=== PATIENT | male | born 1965 | race American Indian/Alaskan Native ===

== ENCOUNTER 2017-07-18 23:11 | Emergency (ER) | payer SELFPAY ==
[2017-07-18] MEDS ORDERED: ASPIRIN PO ONE (23:48)
[2017-07-19] MEDS ORDERED: ATIVAN IV NR (01:15)
[2017-07-19] MEDS ORDERED: NACL 0.9% 1000 ML 1,000 ML IV ONE (01:15)
[2017-07-19 01:20] LABS: Basophils # (Auto) 0.1 K/mm3 (0.0-0.1); Basophils % (Auto) 0.5 % (0.0-1.8); Hematocrit 40.2 % (35.5-45.6); Hemoglobin 14.1 gm/dl (11.8-15.2); Lymphocytes # (Auto) 3.9 K/mm3 (1.2-5.4); Lymphocytes % (Auto) 19.7 % (13.4-35.0); Mean Corpuscular HGB Conc 35 % (32-34); Mean Corpuscular Hemoglobin 30 pg (28-32); Mean Corpuscular Volume 87 fl (84-94); Monocytes # (Auto) 1.1 K/mm3 (0.0-0.8); Monocytes % (Auto) 5.7 % (0.0-7.3); Platelet Count 151 K/mm3 (140-440); Red Blood Count 4.64 M/mm3 (3.65-5.03); Red Cell Distribution Width 13.3 % (13.2-15.2)
[2017-07-19 01:28] LABS: BUN/Creatinine Ratio 16; Blood Urea Nitrogen 13 mg/dL (9-20); Calcium 9.1 mg/dL (8.4-10.2); Hemolysis Index 7
--- NOTE | 2017-07-19 01:35 | XRay Report ---
FINAL REPORT EXAM: XR CHEST 1V AP HISTORY: Chest pain. TECHNIQUE: A single frontal portable radiograph of the chest was obtained. No prior studies are available for comparison. FINDINGS: The cardiac silhouette and mediastinum are within normal limits. The lungs are clear bilaterally, without focal infiltrate or effusion. There is no pneumothorax. No significant osseous abnormalities are identified. IMPRESSION: No active disease seen in the chest.
--- NOTE | 2017-07-19 01:41 | Emergency Department Report ---
ED General Adult HPI - General Chief complaint: Chest Pain Stated complaint: CHEST PAIN Time Seen by Provider: 07/19/17 01:12 Source: EMS Mode of arrival: Ambulatory Limitations: No Limitations - History of Present Illness Initial comments: Patient complains since he was smoking crack today some chest pain that he fell off a ladder evaluation of :chest pain w crack ,suicidal ideation ,fall off a ladder his low back with low back pain denied head or neck injury no hematuria no neck pain no head injury no shortness of breath pain or swelling no fever no cough -: Gradual Location: back Radiation: non-radiation Severity scale (0 -10): 7 Quality: sharp Consistency: intermittent Associated Symptoms: denies: confusion, chest pain, cough, diaphoresis, fever/ chills, headaches, loss of appetite, malaise, nausea/vomiting, rash, seizure, shortness of breath, syncope, weakness - Related Data Home Medications Medication Instructions Recorded Confirmed Last Taken Propylthiouracil 50 mg PO TID 07/02/14 07/02/14 Unknown Allergies Allergy/AdvReac Type Severity Reaction Status Date / Time No Known Allergies Allergy Verified 07/02/14 09:25 ED Review of Systems ROS: Stated complaint: CHEST PAIN Other details as noted in HPI Comment: All other systems reviewed and negative Constitutional: denies: diaphoresis, malaise, weakness Eyes: denies: eye discharge, vision change ENT: denies: ear pain, throat pain, dental pain, hearing loss, epistaxis, congestion Respiratory: denies: cough, orthopnea, shortness of breath, SOB with exertion, SOB at rest, stridor, wheezing, other Cardiovascular: denies: palpitations, dyspnea on exertion, orthopnea, edema, syncope, paroxysmal nocturnal dyspnea Gastrointestinal: denies: abdominal pain, nausea, vomiting, diarrhea, constipation, hematemesis, melena, hematochezia Genitourinary: denies: frequency, hematuria, discharge, testicular pain, testicular mass Musculoskeletal: arthralgia, myalgia Skin: denies: change in color Neurological: other (no bladder or bowel problems). denies: numbness, paresthesias, abnormal gait, vertigo ED Past Medical Hx - Past Medical History Previous Medical History?: No Additional medical history: THYROID - Surgical History Past Surgical History?: No Additional Surgical History: RIGHT FOOT - Social History Smoking Status: Current Every Day Smoker Substance Use Type: Alcohol - Medications Home Medications: Home Medications Medication Instructions Recorded Confirmed Last Taken Type Propylthiouracil 50 mg PO TID 07/02/14 07/02/14 Unknown History ED Physical Exam - General Limitations: No Limitations General appearance: alert, anxious - Head Head exam: Present: atraumatic, normocephalic - Eye Eye exam: Present: normal appearance, PERRL, EOMI Pupils: Present: normal accommodation - ENT ENT exam: Present: normal exam, normal orophraynx, mucous membranes moist - Neck Neck exam: Present: normal inspection. Absent: tenderness, meningismus - Respiratory Respiratory exam: Present: normal lung sounds bilaterally. Absent: respiratory distress, wheezes, rales, rhonchi, stridor, chest wall tenderness, accessory muscle use, decreased breath sounds, prolonged expiratory, other - Cardiovascular Cardiovascular Exam: Present: regular rate, normal rhythm, normal heart sounds - GI/Abdominal GI/Abdominal exam: Present: soft. Absent: distended, tenderness, guarding, rebound, rigid, mass, pulsatile mass - Extremities Exam Extremities exam: Present: normal inspection, normal capillary refill. Absent: pedal edema, joint swelling, calf tenderness - Back Exam Back exam: Present: normal inspection, muscle spasm, paraspinal tenderness - Neurological Exam Neurological exam: Present: alert, oriented X3, CN II-XII intact. Absent: motor sensory deficit - Psychiatric Psychiatric exam: Present: depressed, suicidal ideation. Absent: homicidal ideation - Skin Skin exam: Absent: cyanosis, diaphoretic, erythema, urticaria, vesicles, petechiae, pallor, abrasion, ecchymosis ED Course Vital Signs 07/18/17 07/18/17 07/18/17 23:16 23:30 23:43 Temperature 98.6 F Pulse Rate 120 H 118 H 120 H Respiratory 21 21 24 Rate Blood Pressure 126/64 126/83 Blood Pressure 126/83 [Left] O2 Sat by Pulse 98 98 Oximetry 07/18/17 07/19/17 07/19/17 23:45 00:00 01:04 Temperature Pulse Rate 122 H 111 H Respiratory 22 25 H Rate Blood Pressure 126/64 125/75 125/75 Blood Pressure [Left] O2 Sat by Pulse 99 97 Oximetry 07/19/17 07/19/17 07/19/17 01:15 01:21 03:32 Temperature Pulse Rate 138 H 115 H Respiratory 19 22 16 Rate Blood Pressure 125/75 Blood Pressure 103/66 [Left] O2 Sat by Pulse 99 98 95 Oximetry - Reevaluation(s) Reevaluation #1: 07/19/17 04:08 pt labs unremarkable, neg trop x 2. ekg nondiagnositic, back xray neg per rad for acute process 07/19/17 05:15 ED Medical Decision Making - Lab Data Result diagrams: 07/19/17 02:25 07/18/17 00:40 - EKG Data EKG shows normal: sinus rhythm - EKG Data When compared to previous EKG there are: previous EKG unavailable Interpretation: LVH, other (ischemic change on EKG) - Radiology Data Radiology results: report reviewed - Medical Decision Making Patient's urine tox is positive for cocaine his alcohol is negative back x-ray is negative EKG was no acute ischemic change negative trop 2 he is medically cleared for further evaluation of suicidal ideation and was placed on legal hold for c/o depression and wanting to hurt self. Critical care attestation.: If time is entered above; I have spent that time in minutes in the direct care of this critically ill patient, excluding procedure time. ED Disposition Clinical Impression: Cocaine abuse, Suicidal ideations, Back strain Disposition: [id number] PSY HOSP/PSY UNIT Is pt being admited?: No Condition: Stable Referrals: CHUY ABDULLAHI MD [Primary Care Provider] - 3-5 Days Time of Disposition: 04:11
[2017-07-19 01:52] LABS: Amphetamine Screen,Urine PRESUMPTIVE NEGATIVE; Benzodiazepines Screen,Urine PRESUMPTIVE NEGATIVE; Cannabinoid Screen,Urine PRESUMPTIVE NEGATIVE; Methadone Screen,Urine PRESUMPTIVE NEGATIVE; Opiate Screen,Urine PRESUMPTIVE NEGATIVE
[2017-07-19 02:08] LABS: Cocaine Screen,Urine PRESUMPTIVE POSITIVE
--- NOTE | 2017-07-19 02:30 | XRay Report ---
FINAL REPORT EXAM: XR SPINE LUMBOSACRAL 2-3V HISTORY: fall COMPARISON: None available. FINDINGS: Three views of the lumbar spine obtained. Lumbar vertebral body heights preserved. Mild loss of disc height and endplate osteophyte T12-L1 level. Remaining disc heights are preserved. No spondylolisthesis. IMPRESSION: Lumbar vertebral body heights preserved. Mild focal degenerative changes T12-L1 level.
--- NOTE | 2017-07-19 02:33 | XRay Report ---
FINAL REPORT EXAM: XR SPINE THORACIC 2V HISTORY: fall COMPARISON: None available. FINDINGS: Two views of the thoracic spine obtained. Thoracic vertebral body heights preserved. Mild loss of disc height endplate osteophyte mid to lower thoracic spine. Pedicles are intact. Normal kyphotic curvature. IMPRESSION: Mild degenerative changes. Thoracic vertebral body heights are preserved.
[2017-07-19 02:45] LABS: Hematocrit 40.8 % (35.5-45.6); Hemoglobin 14.1 gm/dl (11.8-15.2); Mean Corpuscular HGB Conc 35 % (32-34); Mean Corpuscular Hemoglobin 30 pg (28-32); Mean Corpuscular Volume 86 fl (84-94); Platelet Count 153 K/mm3 (140-440); Red Blood Count 4.72 M/mm3 (3.65-5.03); Red Cell Distribution Width 13.5 % (13.2-15.2)
[2017-07-19 04:21] LABS: Basophils % (Manual) 0 % (0.0-1.8); Eosinophils % (Manual) 0 % (0.0-4.3); Total Cells Counted 100
[2017-07-19 04:22] LABS: RBC Morphology Normal
[2017-07-19 04:23] LABS: Platelet Estimate Consistent w Auto
--- NOTE | 2017-07-19 12:06 | Consultation ---
History of Present Illness - Reason for Consult Consult date: 07/19/17 Reason for consult: Mental Health Evaluation Requesting physician: ROGER JONES - Chief Complaint Chief complaint: "I am sorry for saying that" - History of Present Psychiatric Illness 51 y.o. AA male presenting to [facility] for chest pain and suicidal thoughts. Today the patient is calm and cooperative during the assessment. He stated that he made the following statement, "my back hurt so much I would like to ." He stated once he said that, he was given a gown and told that he was a 1013. He stated that he injured his back a couple weeks ago. The patient denies a mental health dx when asked. He stated that he was never suicidal on admission. He denies previous suicide attempts. He stated having some relationship issues recently, but he is "okay." He stated that he relapsed on cocaine yesterday after 10 years of being "clean" because of the stress of the relationship. He has decided to move on with his life and not use recreational drug again. He denies SI/HI's and AVH". He denies sleep disturbance and a poor appetite. He denies being depressed and any manic episodes in the past. He denies alcohol consumption (etoh). Per collateral information from a ex-girlfriend Catarina Dumas at [phone], she don't believe that the patient was suicidal on admission. She stated that the patient has never attempted suicide nor stated being suicidal in the past. She confirmed that the patient recently relapsed on cocaine yesterday after 10 yrs being "clean." She stated that she will pick the patient up once discharged. Medications and Allergies Allergies Allergy/AdvReac Type Severity Reaction Status Date / Time No Known Allergies Allergy Verified 07/02/14 09:25 Home Medications Medication Instructions Recorded Confirmed Last Taken Type Propylthiouracil 50 mg PO TID 07/02/14 07/02/14 Unknown History Active Meds: Active Medications Lorazepam (Ativan) 2 mg IV [facility] [employer] NR Stop: 07/19/17 23:45 Past psychiatric history - Past Medical History Past Medical History: No medical history Past Surgical History: No surgical history - past Psychiatric treatment and history psychiatric treatment history: Rehab services for substance abuse in 10 yrs ago. Denies a fam psy hx. - Social History Social history: Lives alone Mental Status Exam - Vital signs Last Vital Signs Temp 98.6 F 07/18/17 23:43 Pulse 112 H 07/19/17 05:53 Resp 14 07/19/17 05:53 BP 106/64 07/19/17 05:53 Pulse Ox 95 07/19/17 05:53 - Exam Narrative exam: MSE: Appearance: calm, cooperative Behavior: good eye contact Speech: regular rate and tone Mood: "okay" Affect: congruent to mood Thought Process: linear Thought Content: denies SI/HI's and AVH's Motor Activity: ambulatory Cognition: A/O x 3 Insight: appropriate Judgment: appropriate Results Result Diagrams: 07/19/17 02:25 07/18/17 00:40 Abnormal lab results 07/18/17 07/19/17 07/19/17 Range/Units 00:40 02:25 05:25 WBC 19.8 H 19.3 H (4.5-11.0) K/mm3 MCHC 35 H 35 H (32-34) % Forrest # 1.1 H (0.0-0.8) K/mm3 Seg Neutrophils % 74.1 H (40.0-70.0) % Seg Neutrophils # 14.6 H (1.8-7.7) K/mm3 Seg Neutrophils # Man 12.0 H (1.8-7.7) K/mm3 Lymphocytes # (Manual) 6.0 H (1.2-5.4) K/mm3 Monocytes # (Manual) 1.4 H (0.0-0.8) K/mm3 Total Creatine Kinase 1039 H (55-170) units/L All other labs normal. Assessment and Plan Assessment and plan: Impression: Hx of cocaine use. Today the patient is calm and cooperative during the assessment. Patient denies SI/HI's. Patient is no threat to self or others. Recommendation/Plan: Rescind 1013. Patient given rehab services to [facility]. Discussed the importance to abstain from recreational drug use with patient. Discussed generalized coping skills with patient.
[2017-07-19 13:09] VITALS: BP 114/73
--- NOTE | 2017-07-19 17:36 | Emergency Department Report ---
Blank Doc - Documentation Documentation: Patient is a 51-year-old male that presented to the emergency room with suicidal ideations. 1013 was signed by ER physician at that time. Psych consult done in psych as deemed patient to be safe to be discharged and has rescinded 1013. Patient left without being seen by me and without discharge paperwork. Per psych patient was stable for discharge for outpatient therapy.
== END 2017-07-19 17:22 ==
LOC: ED 23:11
DX: S39.012A Strain of muscle, fascia and tendon of lower back, initial encounter (principal); R45.851 Suicidal ideations; F14.10 Cocaine abuse, uncomplicated; F17.200 Nicotine dependence, unspecified, uncomplicated; W11.XXXA Fall on and from ladder, initial encounter; Y93.89 Activity, other specified; Y92.89 Other specified places as the place of occurrence of the external cause; Y99.8 Other external cause status
CPT/HCPCS: 36415; 71045; 72070; 72100; 80048; 80307; 82550; 84484; 85007; 85025; 93005; 93010; 96360; 99285; G0480; 80320